=== PATIENT | male | born 1985 | race Caucasian/White ===

== ENCOUNTER 2017-02-19 10:13 | Outpatient (CLI) | payer OTHER ==
--- NOTE | 2017-02-19 11:34 | MRI ---
MRI BRAIN WITHOUT CONTRAST: HISTORY: Frequent headaches, R51, G43.9.09, and S06.0X9A. FINDINGS: Multiplanar, multisequence noncontrast-enhanced MRI images of the brain are obtained. The brain is unremarkable. No evidence of intracranial masses, hemorrhages, strokes, or contusions seen. Ventricles are of normal size. No significant evidence of intracranial pathology noted. No evidence of areas of diffusion restriction seen. No evidence of intracranial mass lesion seen. Normal flow voids seen in the major intracranial vessels. IMPRESSION: Normal noncontrast-enhanced MRI images of brain. POS: [facility]
== END 2017-02-19 10:14 | disposition home or self-care (01) ==
LOC: TBSIIMAG 10:13
PROVIDERS: ATTEND Student in an Organized Health Care Education/Training Program
DX: S06.0X9A Concussion with loss of consciousness of unspecified duration, initial encounter (principal); G43.909 Migraine, unspecified, not intractable, without status migrainosus
CPT/HCPCS: 70551

== ENCOUNTER 2017-10-11 11:48 | Emergency (ER) | payer OTHER ==
[~2017-10-11 11:48] MED LIST: ISOVUE-370 76%-LOCM 1 ML ONE
[2017-10-11 12:15] LABS: #Basophils 0.1 thou/uL (0.0-0.2); #Eosinphils 0.1 thou/uL (0.0-0.7); #Lymphocytes 1.8 thou/uL (1.20-3.40); #Monocytes 0.4 thou/uL (0.11-0.59); #Neutrophils 2.8 thou/uL (1.40-6.50); %Basophils 1.2 % (0.0-1.0); %Eosinophils 2.5 % (0.0-10.0); %Lymphocytes 35.2 % (21.0-51.0); %Monocytes 7.8 % (0.0-10.0); %Neutrophils 53.3 % (42.0-75.0); Hemoglobin 16.1 g/dL (14.0-18.0); Mean Corpuscular HGB CONC 34.5 g/dL (32.0-36.0); Mean Corpuscular Hemoglobin 30.5 pg (27.0-31.0); Mean Corpuscular Volume 88.5 fl (80.0-94.0); Mean Platelet Volume 6.9 fL (7.4-10.4); Platelet Count 291 thou/uL (130-400); RBC Distribution Width 11.8 % (11.5-14.5); Red Blood Cell (RBC) Count 5.28 mill/uL (4.70-6.10); White Blood Cell (WBC) Count 5.2 thou/uL (4.8-10.8)
[2017-10-11 12:26] LABS: INR-International Normal Ratio 2.8; PTT 45.9 SEC (22.9-36.1); Prothrombin Time 30.8 SEC (12.0-14.7)
[2017-10-11 12:34] LABS: ALT (SGPT) 36 U/L (8-55); AST (SGOT) 31 U/L (5-34); Albumin 4.7 g/dL (3.5-5.0); Alkaline Phosphatase 102 U/L (40-150); Anion Gap 12 mmol/L (10-20); BUN (Urea Nitrogen) 11 mg/dL (8.9-20.6); Bilirubin, Total 0.7 mg/dL (0.2-1.2); CK (CPK) 130 U/L (30-200); Calc. Creatinine Clearance 0 mL/min (70-130); Calcium 9.7 mg/dL (7.8-10.44); Carbon Dioxide 26 mmol/L (22-29); Chloride 105 mmol/L (98-107); Estimated GFR-MDRD 73; Globulin 3.5 g/dL (2.4-3.5); Glucose 77 mg/dL (70-105); Lipase 26 U/L (8-78); Potassium 4.3 mmol/L (3.5-5.1); Protein, Total 8.2 g/dL (6.0-8.3); Sodium 139 mmol/L (136-145)
[2017-10-11 12:35] LABS: CKMB 0.7 ng/mL (0-6.6); Troponin I Less than 0.010 ng/mL (< 0.028)
--- NOTE | 2017-10-11 13:09 | RAD ---
PORTABLE CHEST: Date: 10/11/17 HISTORY: Chest pain. COMPARISON: 11/08/16. FINDINGS: Lung carcamo are clear. Heart and mediastinum unremarkable. Vascular markings within normal range. IMPRESSION: No acute abnormality. POS: [facility]
--- NOTE | 2017-10-11 13:45 | CT ---
CTA OF THE THORAX UTILIZING IV CONTRAST AND 3D REFORMATTED IMAGING: COMPARISON: None. INDICATION: History of a 32-year-old male with constant epigastric pain and radiation into the back. The patient is reporting shortness of breath, dizziness, and fatigue. FINDINGS: There is no appreciable central or segmental pulmonary embolus. Heart and great vessels appear withi n normal limits. No pathologically enlarged lymph nodes are evident. There is incidental note of an azygous lobe. No suspicious pulmonary nodule, confluent airspace opacity, or pleural effusion is de monstrated. The visualized upper abdomen is unremarkable for acute abnormality. No acute osseous ab normality is demonstrated. IMPRESSION: No central or segmental pulmonary embolus. POS: [facility]
== END 2017-10-11 14:09 | disposition home or self-care (01) ==
LOC: ERS 11:48
DX: R10.13 Epigastric pain (principal); F41.9 Anxiety disorder, unspecified; Z79.899 Other long term (current) drug therapy; Z86.718 Personal history of other venous thrombosis and embolism
CPT/HCPCS: 71045; 71275; 80053; 82553; 83690; 84484; 85025; 85610; 85730; 93005

== ENCOUNTER 2017-11-19 22:56 | Emergency (ER) | payer OTHER ==
[2017-11-19] MEDS ORDERED: Rabies Vaccine Human 2.5 UNITS VIAL IM ONE (23:45)
== END 2017-11-20 00:10 | disposition home or self-care (01) ==
LOC: ERS 22:56
DX: Z23 Encounter for immunization (principal); K21.9 Gastro-esophageal reflux disease without esophagitis; F41.9 Anxiety disorder, unspecified; Z79.899 Other long term (current) drug therapy
CPT/HCPCS: 90471; 90675; 99283